=== PATIENT | female | born 1965 | race Caucasian/White ===

== ENCOUNTER 2016-12-04 13:03 | Emergency (ER) | payer BC ==
[2016-12-04 13:07] VITALS: TEMP 36.4; Ht 170.2 cm
[2016-12-04] MEDS ORDERED: CEFTRIAXONE SOD 350MG/ML 1 GM VIAL IM ONE ×2 (13:45→15:57)
[2016-12-04] MEDS ORDERED: HYDROCODONE/ACETAMOPHEN 5/325MG TAB PO ONE (13:45)
[2016-12-04] MEDS ORDERED: DIPHTHERIA/TETANUS/PERTUSSIS 0.5 ML SYR/VIAL IM. ONE (13:45)
[2016-12-04] MEDS ORDERED: XYLOCAINE 1%/SOD BICARB 20 ML VIAL INFIL ONE (13:45)
--- NOTE | 2016-12-04 14:09 | DIAGNOSTIC IMAGING REPORT ---
RIGHT SECOND FINGER 3 VIEWS CLINICAL HISTORY: Laceration. FINDINGS: 3 views of the right second finger are obtained. No prior studies are available for comparison at the time of dictation. The examination is significantly degraded by overlying bandaging material. There is an avulsion fracture seen at the tip of the second distal phalanx. Overlying soft tissue edema is noted. No additional fracture is identified. The second metacarpophalangeal and interphalangeal joints appear maintained. The presence of subcutaneous gas or a radiodense foreign body cannot be assessed due to the overlying bandage material. IMPRESSION: There is an avulsion fracture through the tuft of the second distal phalanx with overlying soft tissue edema. Electronically signed by: Jhoan Nicolas M.D. 12/04/2016 2:07 PM Dictated Date/Time: 12/04/2016 2:06 PM
[2016-12-04] MEDS ORDERED: BUPIVACAINE 0.5 % 5 MG/1 ML MPF 30ML VIAL INFIL ONE (14:30)
[2016-12-04] MEDS ORDERED: HYDR-5688 PO (15:48)
[2016-12-04] MEDS ORDERED: CEPH-571 PO (15:48)
[2016-12-04 15:53] VITALS: BP 143/87; PULSE 60; O2SAT 100
--- NOTE | 2016-12-04 19:16 | EMERGENCY ROOM VISIT NOTE ---
History First contact with patient: 13:21 Chief Complaint: LACERATION/CUT (SUT/DERMABOND) Stated Complaint: R HAND LACERATIO: POINTER FINGER Nursing Triage Summary: right second finger hit with sledge hammer between wood. the finger tip is missing a nail and the left later portion of the finger is open and hanging off. History of Present Illness The patient is a 51 year old female who presents to the Emergency Room with complaints of right index finger injury after accidentally striking her hand with a sledgehammer. The patient lost the fingernail and has a laceration through the nail bed. The patient is unsure of her tetanus status. She does not have pain or injury to her other digits or hand. She does have minimal and continued bleeding. She is not on blood thinners. The injury occurred approximately 30 minutes ago. She has not taken medication [id number] for her symptoms. She rates her discomfort an 8/10. Review of Systems More than 10 systems were reviewed and otherwise negative with the exception of history of present illness. Past Medical/Surgical History No chronic medical disease Family History No pertinent family history Social History Smoking Status: Never Smoker Housing Status: lives with family Occupation Status: employed Current/Historical Medications Scheduled Cephalexin (Keflex), 1 CAP PO TID Scheduled PRN Hydrocodone/Acetaminophen 5MG/325MG ([place] 5MG/325MG), 1 TABLET PO Q6 PRN for Pain Allergies Coded Allergies: No Known Allergies (Unverified , 12/04/16) Physical Exam Vital Signs Date Time Temp Pulse Resp B/P (MAP) Pulse Ox O2 Delivery O2 Flow Rate FiO2 12/04/16 15:53 60 16 143/87 100 Room Air 12/04/16 13:07 36.4 67 20 130/89 100 Room Air Pain Rating (0-10): 0 Physical Exam VITALS: Vitals are noted on the nurse's note and reviewed by myself. Vital signs stable. GENERAL: Well-developed, well-nourished, white female who is in mild to moderate distress secondary to her stated complaint. She is overall cooperative with the examination., HEART: Regular rate and rhythm without murmurs gallops or rubs. LUNGS: Clear to auscultation bilaterally without wheezes, rales or rhonchi. No retractions or accessory muscle use. MUSCULOSKELETAL: Laceration is appreciated through the dorsal aspect of the distal right second finger. This laceration does penetrate deeply, gapes, and will require repair. The fingernail is absent. The patient is neurologically intact distally. Laceration measures approximately 2.5 cm in length. No other injuries noted. Bleeding is fairly well controlled with dressing. NEURO: Patient was alert and oriented to person place and time. CN II through XII grossly intact. Medical Decision & Procedures ER Provider Diagnostic Interpretation: RIGHT SECOND FINGER 3 VIEWS CLINICAL HISTORY: Laceration. FINDINGS: 3 views of the right second finger are obtained. No prior studies are available for comparison at the time of dictation. The examination is significantly degraded by overlying bandaging material. There is an avulsion fracture seen at the tip of the second distal phalanx. Overlying soft tissue edema is noted. No additional fracture is identified. The second metacarpophalangeal and interphalangeal joints appear maintained. The presence of subcutaneous gas or a radiodense foreign body cannot be assessed due to the overlying bandage material. IMPRESSION: There is an avulsion fracture through the tuft of the second distal phalanx with overlying soft tissue edema. Medications Administered Medications (Trade) Dose Ordered Sig/Vicky Route Start Time Stop Time Status Last Admin Dose Admin Diphtheria/ Pertussis/Tetanus Vacc (Adacel Inj) 0.5 ml ONCE ONCE IM. 12/04/16 13:45 12/04/16 13:46 DC 12/04/16 13:41 0.5 ML Acetaminophen/ Hydrocodone Bitart ([place] 5/325 Tab) 2 tab NOW ONCE PO 12/04/16 13:45 12/04/16 13:46 DC 12/04/16 13:40 2 TAB Ceftriaxone Sodium (Rocephin Im) 997.5 mg STK-MED ONCE IM 12/04/16 15:57 12/04/16 15:58 DC 12/04/16 16:05 997.5 MG Procedure Laceration repair. Patient elects to have their laceration repaired. Verbal consent was obtained to perform the procedure. There is an abundance of materials available for the procedure. Patient is not allergic to latex. Using sterile technique the wound was cleaned with Betadine. The area was sterilely draped. 5 ml of a 50:50 mix of 0.5% Sensorcaine and 1% buffered lidocaine was used to anesthetize the right index finger in a digital block fashion. Once the patient was anesthetized, the wound was copiously irrigated under pressure with 1 liter sterile saline. The wound was explored and the was exposed bone. The laceration was repaired using 8 simple interrupted 5-0 nylon sutures with the wound edges being well approximated. Hemostasis was achieved. The area was cleaned with sterile saline and dressed with bacitracin ointment and bandage. The patient was given a tetanus booster. Patient tolerated the procedure well without complications. Blood loss was negligible. ED Course Physical exam and history were performed. Nursing notes and EMR were reviewed. Patient appears to have suffered laceration to her right index finger as described above. X-ray was obtained and does show a distal tuft fracture. This is in the location of the patient's laceration is concerning for an open fracture. The patient was given oral Vicodin as well as 1 g IM Rocephin here in the department. The case was discussed with both my attending physician, Dr. Vasquez, and with the on-call orthopedist, Dr Velazco. Recommendation was for copious irrigation , closure, and antibiotics. The patient is to follow up with orthopedics in 36- 48 hours for recheck. The patient's laceration was closed as above and she tolerated the procedure well. Her tetanus was updated. She was placed in a splint. The patient will be given a course of Keflex and Vicodin. She is to follow with orthopedics as recommended and was otherwise invited back to the ER with any new, worsening, or concerning symptoms. The chart was completed utilizing [employer] Speech Voice Recognition Software. Grammatical errors, random word insertions, pronoun errors, and incomplete sentences are an occasional consequence of this system due to software limitations, ambient noise, and hardware issues. Any formal questions or concerns about the content, text, or information contained within the body of this dictation should be directly addressed to the provider for clarification. . Medical Decision Differential diagnosis includes, but is not limited to: Sprain, strain, fracture , dislocation, subluxation, contusion, laceration, foreign body, open fracture, and others [place] Drug Monitoring Program Search Results: no issues identified Impression Primary Impression: Crush injury to finger Additional Impressions: Open fracture of tuft of distal phalanx of finger Finger laceration Departure Information Dispostion Home / Self-Care Condition GOOD Prescriptions Hydrocodone/Acetaminophen 5MG/325MG ([place] 5MG/325MG) Tab 1 TABLET PO Q6 Y for Pain, #12 TAB For Initial Treatment Prov: Chuck Benavidez PA-C 12/04/16 Cephalexin (KEFLEX) 500 Mg Cap 1 CAP PO TID for 10 Days, #30 CAP Prov: Chuck Benavidez PA-C 12/04/16 Referrals Antonino Velazco MD Forms HOME CARE DOCUMENTATION FORM, IMPORTANT VISIT INFORMATION Patient Instructions My [facility], ED Laceration All Additional Instructions You were seen and evaluated today on an emergency basis only. This is not a substitute for, or an effort to provide, complete comprehensive medical care. It is not possible to recognize and treat all injuries or illnesses in a single emergency department visit. For this reason it is recommended that you followup with [facility] , Dr. Velazco's office, on Monday for a follow-up. Call the office at 8 AM Monday and let them know that we spoke directly with Dr. Velazco and he would like to see you. For baseline pain relief you may alternate ibuprofen and acetaminophen every 4 hours for pain control. Take 600 mg ibuprofen (Advil) and then 4 hours later take 1000 mg acetaminophen (Tylenol). Do not take more than 3000 mg acetaminophen in a single day. [place] (hydrocodone/acetaminophen) 5/325 mg every 6 hours as needed for worsening breakthrough pain. Do not drink or drive on [place]. This medication will likely make you tired. Do not take [place] and Tylenol at the same time as both contain acetaminophen. [place] may cause constipation. You may wish to take an [id number] stool softener like Colace if this occurs. Cephalexin(Keflex) 500mg: Take one pill 3 times daily for 7 days for your skin infection. All antibiotics can cause diarrhea. If this occurs and you feel worse or it does not resolve in 1-2 days follow up with your doctor or return to the Emergency Department as this could be signs of serious underlying problems. Any medication can cause an allergic reaction, stop the pills immediately and return to the ER for rash, hives, breathing difficulties, or swelling. Keep wound clean and dry. Do not allow any crusting or dried blood to accumulate on sutures. If this occurs, use a mild soap/water on a Q-tip to clean the wound. Do not use Peroxide to clean the wound as this can delay healing Use an antibiotic ointment like Bacitracin for 3-4 days, then let wound dry. You may bathe and shower as normal, but DO NOT SOAK the wound. Suture removal in about 10 days with your Family Doctor, Orthopedics, or in the ER. Return sooner for any signs of infection, increasing redness, swelling, or drainage. You are welcome to return to the emergency department anytime with new, worsening, or concerning symptoms. Problem Qualifiers
== END 2016-12-04 16:18 | disposition home or self-care (01) ==
LOC: C.EDB 13:06 → C.EDD 16:18
DX: S67.190A Crushing injury of right index finger, initial encounter (principal); S62.630B Displaced fracture of distal phalanx of right index finger, initial encounter for open fracture; S61.310A Laceration without foreign body of right index finger with damage to nail, initial encounter; W22.8XXA Striking against or struck by other objects, initial encounter; Z23 Encounter for immunization